=== PATIENT | male | born 1970 | race Caucasian/White ===

== ENCOUNTER 2021-05-08 03:15 | Emergency (ER) | payer BC ==
[~2021-05-08] VITALS: Ht 182.9 cm; Wt 102.1 kg
--- NOTE | 2021-05-08 04:00 | NUR ---
pt bibwife c/o of fever, cough, sore throat for 3-4 days. pt previously went to urgent care who prescribed him abx, amoxicillin. when pt presentsed to [facility], covid antigen and pcr swab taken and sent for lab. pt placed on monitor, no distress noted.
--- NOTE | 2021-05-08 04:23 | NUR ---
xray at bedside
--- NOTE | 2021-05-08 05:10 | NUR ---
strep swab taken and sent for lab
--- NOTE | 2021-05-08 05:17 | NUR ---
data control clerk at bedside
[2021-05-08 05:32] LABS: BASOPHILS # (AUTO) 0.1 K/uL (0.0-0.2); BASOPHILS % (AUTO) 0.5 % (0.0-2.0); EOSINOPHILS % (AUTO) 0.1 % (0.0-6.0); HEMATOCRIT 47 % (39-51); HEMOGLOBIN 15.6 g/dL (13.5-17.5); LYMPHOCYTES # (AUTO) 1.4 K/uL (0.8-4.8); LYMPHOCYTES % (AUTO) 13.1 % (20.0-44.0); MEAN CORPUSCULAR HGB CONC 34 g/dl (31.0-36.0); MEAN CORPUSCULAR VOLUME 91 fL (80-96); MONOCYTES # (AUTO) 0.9 K/uL (0.1-1.30); MONOCYTES % (AUTO) 8.9 % (2.0-12.0); NEUTROPHILS # (AUTO) 8.3 K/uL (1.8-8.9); NEUTROPHILS % (AUTO) 77.4 % (43.0-81.0); PLATELET COUNT (AUTO) 151 K/uL (150-450); RED BLOOD CELL COUNT(AUTO) 5.13 MIL/uL (4.5-6.0); WHITE BLOOD COUNT (AUTO) 10.7 K/uL (4.3-11.0)
[2021-05-08] MEDS ORDERED: IBUPROFEN 600 MG TABLET PO ONE (06:00)
--- NOTE | 2021-05-08 06:12 | NUR ---
Patient discharged to home in stable condition. Written and verbal after care instructions given. Patient verbalizes understanding of instruction. copy of cxr and lab work sent home with pt as requested, explained to pt should be 2-3 days for result of pcr.
[2021-05-08 06:25] VITALS: BP 109/67
== END 2021-05-08 06:00 | disposition home or self-care (01) ==
LOC: ER 03:25
DX: U07.1 COVID-19 (principal)
CPT/HCPCS: 36415; 71045; 85025; 87070; 87426; 87880; 99284; C9803 ×2; U0003; 86403-TC

== ENCOUNTER 2021-09-30 09:53 | Outpatient (CLI) | payer BC ==
[2021-09-30 11:32] LABS: BILIRUBIN,URINE NEGATIVE (NEGATIVE); COLOR,URINE YELLOW (YELLOW); LEUKOCYTE ESTERASE ,URINE NEGATIVE (NEGATIVE); NITRITE, URINE NEGATIVE (NEGATIVE); PROTEIN,URINE NEGATIVE (NEGATIVE); UGLUCOSE NEGATIVE (NEGATIVE)
[2021-09-30 11:38] LABS: BASOPHILS % (AUTO) 0.3 % (0.0-2.0); EOSINOPHILS % (AUTO) 1.3 % (0.0-6.0); HEMATOCRIT 43 % (39-51); HEMOGLOBIN 14.7 g/dL (13.5-17.5); LYMPHOCYTES # (AUTO) 1.6 K/uL (0.8-4.8); LYMPHOCYTES % (AUTO) 26.9 % (20.0-44.0); MEAN CORPUSCULAR HGB CONC 34 g/dl (31.0-36.0); MEAN CORPUSCULAR VOLUME 88 fL (80-96); MONOCYTES # (AUTO) 0.5 K/uL (0.1-1.30); MONOCYTES % (AUTO) 8.1 % (2.0-12.0); NEUTROPHILS # (AUTO) 3.8 K/uL (1.8-8.9); NEUTROPHILS % (AUTO) 63.4 % (43.0-81.0); PLATELET COUNT (AUTO) 156 K/uL (150-450); RED BLOOD CELL COUNT(AUTO) 4.86 MIL/uL (4.5-6.0)
[2021-09-30 12:14] LABS: WBC,URINE 0-2 /HPF (0-3)
[2021-09-30 12:15] LABS: BACTERIA,URINE Rare /HPF (None Seen); MUCUS,URINE Few /LPF (None Seen); PROSTATE SPECIFIC ANTIGEN SCR 1.32 ng/mL (0.00-4.00); SQUAMOUS EPITHELIAL CELL,UR Rare /HPF (None Seen); THYROID STIMULATING HORMONE 2.382 uIU/mL (0.358-3.74); URIC ACID 4.5 mg/dL (2.6-7.2)
[2021-09-30 12:31] LABS: ALBUMIN 3.9 g/dL (3.4-5.0); BILIRUBIN,TOTAL 0.8 mg/dL (0.2-1.0); CALCIUM, SERUM 8.8 mg/dL (8.5-10.1); CREATININE 0.7 mg/dL (0.6-1.3); MAGNESIUM 1.7 mg/dL (1.8-2.4); POTASSIUM 4.4 mmol/L (3.5-5.1); TOTAL PROTEIN, SERUM 7.2 g/dL (6.4-8.2)
[2021-10-01 09:17] LABS: FOLLICLE STIMULATION HORMONE 4.6 mIU/mL (1.5-12.4); LUTEINIZING HORMONE 4.2 mIU/mL (1.7-8.6); T3, FREE 3.5 pg/mL (2.0-4.4)
== END 2021-09-30 23:59 | disposition home or self-care (01) ==
LOC: LAB 09:53
PROVIDERS: ATTEND Family Medicine
DX: Z00.01 Encounter for general adult medical examination with abnormal findings (principal); E55.9 Vitamin D deficiency, unspecified; N52.9 Male erectile dysfunction, unspecified; Z79.899 Other long term (current) drug therapy
CPT/HCPCS: 36415; 80053-TC; 80061-TC; 81001; 82306; 82607-TC; 82728-TC; 83001; 83002; 83540-TC; 83550-TC; 83735-TC; 84153-TC; 84402; 84403; 84439-TC; 84443-TC; 84481; 84550-TC; 85025-TC